=== PATIENT | male | born 1945 | race African-American/Black ===

== ENCOUNTER → 2017-08-30 | Outpatient (CLI) | payer MEDICARE, MEDICAID ==
[~2017-08-30] MED LIST: ALBU6.7H INH; ASPI-515 PO; ATOR40TA78 PO; AZIT250T89 PO; BENZ-17 PO; FLUT1AER INH; FLUTICASONE INH; GABA300C10 PO; LISI2.5T PO; LOSA50TA6 PO; METF500T4 PO; METH4TAB2 PO; MULT-717 PO; OMEP-110 PO
== END | disposition home or self-care (01) ==
LOC: CFH 09:17
PROVIDERS: ATTEND Internal Medicine
DX: J43.2 Centrilobular emphysema (principal); J84.10 Pulmonary fibrosis, unspecified
CPT/HCPCS: 71250

== ENCOUNTER 2018-01-01 21:36 | Emergency (ER) | payer MEDICARE, MEDICAID ==
[~2018-01-01] VITALS: Ht 175.3 cm; Wt 85.0 kg
[~2018-01-01 21:36] MED LIST changes: -METF500T4 PO; +METF500T5 PO
[2018-01-01] MEDS ORDERED: IBUPROFEN 200 MG TABLET ONE (22:13)
[2018-01-01] MEDS ORDERED: IBUPROFEN 200 MG TABLET PO ONE (22:30)
[2018-01-02 00:17] VITALS: BP 96/47
== END 2018-01-02 00:20 | disposition home or self-care (01) ==
LOC: ED 01-02 00:18
DX: S06.0X9A Concussion with loss of consciousness of unspecified duration, initial encounter (principal); S16.1XXA Strain of muscle, fascia and tendon at neck level, initial encounter; G89.11 Acute pain due to trauma; M25.512 Pain in left shoulder; I10 Essential (primary) hypertension; E11.9 Type 2 diabetes mellitus without complications; J44.9 Chronic obstructive pulmonary disease, unspecified; M19.91 Primary osteoarthritis, unspecified site; F17.200 Nicotine dependence, unspecified, uncomplicated; W07.XXXA Fall from chair, initial encounter; Y93.89 Activity, other specified; Y92.89 Other specified places as the place of occurrence of the external cause; Y99.8 Other external cause status
CPT/HCPCS: 70450; 72125; 99284

== ENCOUNTER 2018-06-04 22:54 | Emergency (ER) | payer MEDICARE, MEDICAID ==
[~2018-06-04] VITALS: Ht 175.3 cm; Wt 83.0 kg
[~2018-06-04 22:54] MED LIST changes: -LOSA50TA6 PO; +LOSA50TA7 PO; +METF500T17 PO; -METF500T5 PO
[2018-06-04 23:42] VITALS: BP 123/69
== END 2018-06-05 00:08 | disposition left against medical advice (07) ==
LOC: ED 06-05 00:01
DX: R55 Syncope and collapse (principal); I10 Essential (primary) hypertension; E11.9 Type 2 diabetes mellitus without complications; J44.9 Chronic obstructive pulmonary disease, unspecified
CPT/HCPCS: 71045; 93005; 99283

== ENCOUNTER 2018-06-10 09:56 | Emergency (ER) | payer MEDICARE, MEDICAID ==
[~2018-06-10] VITALS: Ht 177.8 cm; Wt 83.0 kg
[2018-06-10 11:36] LABS: RAPID INFLUENZA A POSITIVE (Negative); RAPID INFLUENZA B Negative (Negative)
[2018-06-10] MEDS ORDERED: DEXAMETHASONE 4 MG TABLET ONE ×2 (13:26→13:28)
[2018-06-10] MEDS ORDERED: DEXAMETHASONE 4 MG TABLET PO ONE (13:30)
[2018-06-10 13:40] VITALS: BP 138/82
== END 2018-06-10 13:42 | disposition home or self-care (01) ==
LOC: ED 11:45
DX: J10.1 Influenza due to other identified influenza virus with other respiratory manifestations (principal); I10 Essential (primary) hypertension; E11.9 Type 2 diabetes mellitus without complications; M19.90 Unspecified osteoarthritis, unspecified site; J44.9 Chronic obstructive pulmonary disease, unspecified
CPT/HCPCS: 71046; 87400; 99284

== ENCOUNTER 2018-08-29 07:19 | Emergency (ER) | payer MEDICARE, MEDICAID ==
[~2018-08-29] VITALS: Ht 175.3 cm; Wt 84.2 kg
[~2018-08-29 07:19] MED LIST changes: +LOSA50TA14 PO; -LOSA50TA7 PO
[2018-08-29] MEDS ORDERED: KETOROLAC 30 MG/1 ML IVPush ONE (08:00)
[2018-08-29] MEDS ORDERED: SODIUM CHLORIDE 0.9% 1,000ML IVBOLUS ONE (08:00)
[2018-08-29] MEDS ORDERED: ACETAMINOPHEN 325 MG TABLET PO ONE (08:00)
[2018-08-29] MEDS ORDERED: ACETAMINOPHEN 325 MG TABLET ONE (08:05)
[2018-08-29] MEDS ORDERED: KETOROLAC 30 MG/1 ML ONE (08:05)
[2018-08-29 08:24] LABS: MEAN CORPUSCULAR HEMOGLOBIN 30.2 pg (27.5-34.5); MEAN CORPUSCULAR HGB CONC 33.1 g/dL (33.2-36.2); MEAN CORPUSCULAR VOLUME 91.4 fL (81-97); PLATELET COUNT 199 x10^3/uL (130-400); RED BLOOD COUNT 5.01 x10^6/uL (4.38-5.82); RED CELL DISTRIBUTION WIDTH 14.1 % (9.4-14.8)
[2018-08-29 08:35] LABS: ALANINE AMINOTRANSFERASE 15 U/L (12-78); ALBUMIN 3.1 g/dL (3.4-5.0); ANION GAP 7 mmol/L (5-15); CALCIUM 8.8 mg/dL (8.5-10.1); CHLORIDE 105 mmol/L (98-107)
[2018-08-29 08:40] LABS: ALKALINE PHOSPHATASE 89 U/L (45-117); BASOPHILS # (AUTO) 0.01 x10^3/uL (0-0.1); BASOPHILS % (AUTO) 0 % (0-1); BILIRUBIN,TOTAL 0.7 mg/dL (0.2-1.0); CREATININE 1.04 mg/dL (0.7-1.3); EOSINOPHILS % (AUTO) 0 % (1-7); LYMPHOCYTES # (AUTO) 0.69 x10^3/uL (1-3.4); LYMPHOCYTES % (AUTO) 5 % (22-44); MD SCAN; MONOCYTES # (AUTO) 0.89 x10^3/uL (0.2-0.8); MONOCYTES % (AUTO) 7 % (2-9); NEUTROPHILS # (AUTO) 11.72 x10^3/uL (1.8-6.8); NEUTROPHILS % (AUTO) 88 % (42-75); TOTAL PROTEIN 7.8 g/dL (6.4-8.2); TROPONIN I < 0.015 ng/mL (0.000-0.045)
[2018-08-29 08:47] LABS: RAPID INFLUENZA A Negative (Negative); RAPID INFLUENZA B Negative (Negative)
--- NOTE | 2018-08-29 10:16 | NUR ---
PT OOB TO STAND AND USE URINAL. URINE SENT TO LAB
[2018-08-29 10:44] LABS: MICROSCOPIC INDICATED
[2018-08-29 10:59] LABS: CULTURE INDICATED? NO
[2018-08-29 11:53] VITALS: BP 109/60
--- NOTE | 2018-08-29 11:54 | NUR ---
1800 ADA DIET TRAY PROVIDED. D/C INST REVIEWED AND QUESTIONS ANSWERED. PT VERBALIZES UNDERSTANDING. PT TO D/C ONCE HE FINISHES HIS MEAL. UPRIGHT STEADY GAIT USING HIS CANE.
== END 2018-08-29 11:55 | disposition home or self-care (01) ==
LOC: ED 07:41
DX: M79.10 Myalgia, unspecified site (principal); R05 Cough; R09.81 Nasal congestion; J44.9 Chronic obstructive pulmonary disease, unspecified; M19.90 Unspecified osteoarthritis, unspecified site; E11.9 Type 2 diabetes mellitus without complications; I10 Essential (primary) hypertension
CPT/HCPCS: 36415; 71045; 80053; 81001; 83605; 83690; 84145; 84484; 85025; 87040; 87077; 87400; 93005; 96361; 96374; 99284; J1885; J7030; 87181

== ENCOUNTER 2018-08-30 20:09 | Inpatient (IN) | payer MEDICARE, MEDICAID ==
[~2018-08-30] VITALS: Ht 175.3 cm; Wt 77.9 kg
--- NOTE | 2018-08-30 20:20 | NUR ---
BIB [facility] FOR C/O SOB X 2 DAYS. DENIES CP. REPORTS WAS SEEN HERE YESTERDAY FOR SAME BUT FEELS WORSE TODAY. HX OF COPD WEARS 2L O2 VIA NC AT NIGHT. PT. ALSO C/O KELLEY TODAY ALL DAY. REPORTS "I WAS WEAK AND I FELL DOWN TWICE TODAY". DENIES INJURY/PAIN FROM FALLS TODAY. HAS PERSONAL CANE WITH HIM. PT. IS NSR-SINUS TACH ON MONITOR. CONTINUOUS PULSE OX, B/P, AND HEART MONIOTRS IN PLACE. AWAITING PROVIDER EVAL.
--- NOTE | 2018-08-30 20:34 | NUR ---
EKG WAS COMPLETED AND PRESENTED TO TAIWO.
[2018-08-30] MEDS ORDERED: ALBUTEROL/IPRATROPIUM 2.5MG/0.5MG, 3 ML ONE (20:48)
--- NOTE | 2018-08-30 21:17 | NUR ---
PT. PROVIDED MED LIST; UPDATED IN COMPUTER. VS UPDATED AND HAVE IMPROVED SINCE ARRIVAL. LAB AT BS DRAWING 2ND SET OF BLOOD CULTURES. PT. WITH NADN. RESP EVEN, NON-LABORED AT THIS TIME. O2 TURNED DOWN TO 1L PT. O2 SAT WAS 100% ON 2L. 99% ON 1L AT THIS TIME. CALL LIGHT REAMINS IN REACH. ALL SAFETY MEASURES OBSERVED.
[2018-08-30] MEDS ORDERED: ACETAMINOPHEN 500 MG TABLET ONE (21:22)
[2018-08-30] MEDS ORDERED: CEFTRIAXONE PMX 1GM/50ML 50 ML ONE (21:22)
[2018-08-30 21:28] LABS: BASOPHILS # (AUTO) 0.02 x10^3/uL (0-0.1); BASOPHILS % (AUTO) 0 % (0-1); EOSINOPHILS # (AUTO) 0.01 x10^3/uL (0-0.4); EOSINOPHILS % (AUTO) 0 % (1-7); LYMPHOCYTES # (AUTO) 2.08 x10^3/uL (1-3.4); LYMPHOCYTES % (AUTO) 22 % (22-44); MD NO; MEAN CORPUSCULAR HEMOGLOBIN 30.4 pg (27.5-34.5); MEAN CORPUSCULAR HGB CONC 32.8 g/dL (33.2-36.2); MEAN CORPUSCULAR VOLUME 92.6 fL (81-97); MEAN PLATELET VOLUME 7.9 fL (7.4-10.4); MONOCYTES # (AUTO) 1.05 x10^3/uL (0.2-0.8); MONOCYTES % (AUTO) 11 % (2-9); NEUTROPHILS # (AUTO) 6.14 x10^3/uL (1.8-6.8); NEUTROPHILS % (AUTO) 66 % (42-75); PLATELET COUNT 177 x10^3/uL (130-400); RED BLOOD COUNT 4.67 x10^6/uL (4.38-5.82); RED CELL DISTRIBUTION WIDTH 14.4 % (9.4-14.8)
--- NOTE | 2018-08-30 21:29 | NUR ---
PT. MEDICATED PER SEP. 2 SETS OF BLOOD CULTURES DRAWN PRIOR TO IV ABD. PT. ASSISTED TO POSITION OF COMFORT ON GURNEY. CALL LIGHT IN REACH. PT. DID VOID ABOUT 100ML OF YELLOW URINE INTO URINAL. DENIES NEEDS AT THIS TIME. ALL SAFETY MEASURES OBSERVED.
[2018-08-30] MEDS ORDERED: AZITHROMYCIN 500 MG in SODIUM CHLORIDE 0.9% 250 ML IV ONE (21:30)
[2018-08-30] MEDS ORDERED: ACETAMINOPHEN 325 MG TABLET PO ONE (21:30)
[2018-08-30] MEDS ORDERED: CEFTRIAXONE PMX 1GM/50ML 50 ML IV ONE (21:30)
[2018-08-30 21:37] LABS: ALBUMIN 2.9 g/dL (3.4-5.0); ANION GAP 5 mmol/L (5-15); CALCIUM 8.5 mg/dL (8.5-10.1); CHLORIDE 100 mmol/L (98-107); CREATININE 1.13 mg/dL (0.7-1.3)
[2018-08-30 21:41] LABS: TROPONIN I < 0.015 ng/mL (0.000-0.045)
--- NOTE | 2018-08-30 21:59 | NUR ---
PT. RESTING ON GURNEY WITH EYES CLOSED. EVEN, NON-LABORED RESP VISIBLE. ALL SAFETY MEASURES MAINTAINED.
--- NOTE | 2018-08-30 22:00 | NUR ---
CHART UP FOR RECHECK BY TAIWO.
--- NOTE | 2018-08-30 22:29 | NUR ---
REPORT TO HALLIE BRYAN. FLOOR READY FOR PT. TRANSPORT.
--- NOTE | 2018-08-30 22:37 | NUR ---
[facility] AT TO EVAL PT. FOR ADMISSION.
[2018-08-30 22:58] VITALS: BP 115/72
[2018-08-30] MEDS ORDERED: LIDODERM 5% PATCH TD PRN (23:00)
[2018-08-30] MEDS ORDERED: ALBUTEROL/IPRATROPIUM 2.5MG/0.5MG, 3 ML NPPB PRN (23:00)
[2018-08-30] MEDS ORDERED: DOCUSATE 100 MG CAPSULE PO PRN (23:00)
[2018-08-30] MEDS ORDERED: ONDANSETRON ODT 4 MG PO PRN (23:00)
[2018-08-30] MEDS ORDERED: GABAPENTIN 300 MG CAPSULE PO PRN (23:00)
[2018-08-30] MEDS ORDERED: DIPHENHYDRAMINE 25 MG CAPSULE PO PRN (23:00)
[2018-08-30] MEDS: ENOXAPARIN 40 MG/0.4 ML SQ SCH (23:38)
[2018-08-30] MEDS: SODIUM CHLORIDE 0.9% 1,000 ML IV SCH (23:38)
[2018-08-31 01:19] VITALS: BP 118/78
[2018-08-31] MEDS ORDERED: FLUTICASONE 50 MCG INH PRN (02:30)
[2018-08-31] MEDS ORDERED: BENZONATATE 100 MG CAPSULE PO PRN (02:30)
[2018-08-31 04:07] LABS: RAPID INFLUENZA A Negative (Negative); RAPID INFLUENZA B Negative (Negative)
[2018-08-31 06:00] LABS: ANION GAP 5 mmol/L (5-15); CALCIUM 8.2 mg/dL (8.5-10.1); CHLORIDE 105 mmol/L (98-107); CREATININE 0.93 mg/dL (0.7-1.3)
[2018-08-31] MEDS ORDERED: TEMPLATE NON-FORMULARY MED. (Albuterol Sulfate (Proventil Hfa) 2 PUFF(S)) INH SCH (06:00)
[2018-08-31 06:05] LABS: BASOPHILS # (AUTO) 0.03 x10^3/uL (0-0.1); BASOPHILS % (AUTO) 0 % (0-1); EOSINOPHILS # (AUTO) 0.03 x10^3/uL (0-0.4); EOSINOPHILS % (AUTO) 0 % (1-7); LYMPHOCYTES # (AUTO) 1.71 x10^3/uL (1-3.4); LYMPHOCYTES % (AUTO) 24 % (22-44); MD NO; MEAN CORPUSCULAR HGB CONC 33.3 g/dL (33.2-36.2); MEAN CORPUSCULAR VOLUME 93.3 fL (81-97); MEAN PLATELET VOLUME 7.9 fL (7.4-10.4); MONOCYTES # (AUTO) 1.28 x10^3/uL (0.2-0.8); MONOCYTES % (AUTO) 18 % (2-9); NEUTROPHILS # (AUTO) 4.08 x10^3/uL (1.8-6.8); NEUTROPHILS % (AUTO) 57 % (42-75); PLATELET COUNT 171 x10^3/uL (130-400); RED BLOOD COUNT 4.21 x10^6/uL (4.38-5.82); RED CELL DISTRIBUTION WIDTH 14.4 % (9.4-14.8)
[2018-08-31] MEDS: LOSARTAN 50MG TABLET PO SCH (08:20)
[2018-08-31] MEDS: ATORVASTATIN 40 MG TABLET PO SCH (08:20)
[2018-08-31] MEDS: MULTIVITAMINS/MINERALS TABLET PO SCH (08:20)
[2018-08-31] MEDS: OMEPRAZOLE 20 MG CAPSULE.DR PO SCH (08:20)
[2018-08-31] MEDS: GABAPENTIN 300 MG CAPSULE PO SCH (08:20)
[2018-08-31] MEDS: ASPIRIN 81 MG TABLET EC PO SCH (08:20)
[2018-08-31] MEDS: SODIUM CHLORIDE 0.9% 1,000 ML IV SCH ×2 (08:20→22:03)
[2018-08-31 08:22] VITALS: BP 133/84
[2018-08-31] MEDS: GUAIFENESIN/DM 200-20MG, 10ML UDC PO PRN ×2 (08:32→16:06)
[2018-08-31] MEDS: ACETAMINOPHEN 325 MG TABLET PO PRN ×2 (08:33→16:06)
[2018-08-31] MEDS: CEFTRIAXONE PMX 1GM/50ML 50 ML IV SCH ×2 (10:30→23:46)
[2018-08-31] MEDS: BUDESONIDE 0.5 MG/2 ML INHA NPPB SCH ×2 (10:50→19:46)
[2018-08-31] MEDS: ALBUTEROL/IPRATROPIUM 2.5MG/0.5MG, 3 ML NPPB SCH ×3 (10:50→19:46)
[2018-08-31 19:38] VITALS: BP 139/88
[2018-08-31] MEDS: AZITHROMYCIN 500 MG in SODIUM CHLORIDE 0.9% 250 ML IV SCH (22:03)
[2018-08-31] MEDS: ENOXAPARIN 40 MG/0.4 ML SQ SCH (23:46)
[2018-09-01 01:03] VITALS: BP 116/68
[2018-09-01] MEDS: ALBUTEROL/IPRATROPIUM 2.5MG/0.5MG, 3 ML NPPB SCH ×4 (03:00→19:22)
[2018-09-01 06:35] LABS: BASOPHILS # (AUTO) 0.02 x10^3/uL (0-0.1); BASOPHILS % (AUTO) 0 % (0-1); EOSINOPHILS # (AUTO) 0.02 x10^3/uL (0-0.4); EOSINOPHILS % (AUTO) 0 % (1-7); LYMPHOCYTES # (AUTO) 1.72 x10^3/uL (1-3.4); LYMPHOCYTES % (AUTO) 20 % (22-44); MD NO; MEAN CORPUSCULAR HEMOGLOBIN 30.7 pg (27.5-34.5); MEAN CORPUSCULAR HGB CONC 33.3 g/dL (33.2-36.2); MEAN CORPUSCULAR VOLUME 92.1 fL (81-97); MEAN PLATELET VOLUME 8.4 fL (7.4-10.4); MONOCYTES # (AUTO) 0.77 x10^3/uL (0.2-0.8); MONOCYTES % (AUTO) 9 % (2-9); NEUTROPHILS # (AUTO) 6.09 x10^3/uL (1.8-6.8); NEUTROPHILS % (AUTO) 71 % (42-75); PLATELET COUNT 177 x10^3/uL (130-400); RED BLOOD COUNT 4.14 x10^6/uL (4.38-5.82); RED CELL DISTRIBUTION WIDTH 14.4 % (9.4-14.8)
[2018-09-01 06:44] LABS: ANION GAP 5 mmol/L (5-15); CALCIUM 8.4 mg/dL (8.5-10.1); CHLORIDE 109 mmol/L (98-107); CREATININE 0.83 mg/dL (0.7-1.3)
[2018-09-01 07:01] LABS: HEMOGLOBIN A1C 7.2 % (4.2-6.3)
[2018-09-01 07:25] VITALS: BP 137/74
[2018-09-01] MEDS: OMEPRAZOLE 20 MG CAPSULE.DR PO SCH (07:49)
[2018-09-01] MEDS: SODIUM CHLORIDE 0.9% 1,000 ML IV SCH (07:49)
[2018-09-01] MEDS: ATORVASTATIN 40 MG TABLET PO SCH (07:49)
[2018-09-01] MEDS: LOSARTAN 50MG TABLET PO SCH (07:49)
[2018-09-01] MEDS: GABAPENTIN 300 MG CAPSULE PO SCH (07:49)
[2018-09-01] MEDS: MULTIVITAMINS/MINERALS TABLET PO SCH (07:49)
[2018-09-01] MEDS: ASPIRIN 81 MG TABLET EC PO SCH (07:49)
[2018-09-01] MEDS: BUDESONIDE 0.5 MG/2 ML INHA NPPB SCH ×2 (08:23→19:22)
[2018-09-01] MEDS: GUAIFENESIN/DM 200-20MG, 10ML UDC PO PRN (10:17)
[2018-09-01] MEDS: CEFTRIAXONE PMX 1GM/50ML 50 ML IV SCH ×2 (11:45→23:48)
[2018-09-01 13:06] VITALS: BP 138/75
[2018-09-01 18:43] VITALS: BP 137/82
[2018-09-01] MEDS: AZITHROMYCIN 500 MG in SODIUM CHLORIDE 0.9% 250 ML IV SCH (22:16)
[2018-09-01] MEDS: ENOXAPARIN 40 MG/0.4 ML SQ SCH (23:48)
[2018-09-02 01:44] VITALS: BP 133/76
[2018-09-02] MEDS: ALBUTEROL/IPRATROPIUM 2.5MG/0.5MG, 3 ML NPPB SCH ×2 (02:14→07:14)
[2018-09-02] MEDS: BUDESONIDE 0.5 MG/2 ML INHA NPPB SCH (07:14)
[2018-09-02 07:16] VITALS: BP 136/72
[2018-09-02] MEDS: GABAPENTIN 300 MG CAPSULE PO SCH (09:00)
[2018-09-02] MEDS: ATORVASTATIN 40 MG TABLET PO SCH (09:00)
[2018-09-02] MEDS: LOSARTAN 50MG TABLET PO SCH (09:01)
[2018-09-02] MEDS: OMEPRAZOLE 20 MG CAPSULE.DR PO SCH ×2 (09:01→09:03)
[2018-09-02] MEDS: MULTIVITAMINS/MINERALS TABLET PO SCH (09:01)
[2018-09-02] MEDS: ASPIRIN 81 MG TABLET EC PO SCH (09:01)
[2018-09-02] MEDS ORDERED: FLUT1AER INH (09:03)
[2018-09-02] MEDS ORDERED: CEFD300C37 PO (09:03)
[2018-09-02] MEDS ORDERED: AZIT500T5 PO (09:03)
[2018-09-02] MEDS ORDERED: BENZ-17 PO (09:03)
== END 2018-09-02 11:54 | disposition home or self-care (01) | DRG 871 ==
LOC: ED 22:12 → EDIP 22:45 → 4WST 22:46 → 4EST 09-01 00:19 → DCLOUNGE 09-02 11:40
PROVIDERS: ADMIT Internal Medicine; ATTEND Internal Medicine
DX: A41.9 Sepsis, unspecified organism (principal); J15.9 Unspecified bacterial pneumonia; J44.0 Chronic obstructive pulmonary disease with (acute) lower respiratory infection; J84.10 Pulmonary fibrosis, unspecified; E11.40 Type 2 diabetes mellitus with diabetic neuropathy, unspecified; E11.65 Type 2 diabetes mellitus with hyperglycemia; E88.09 Other disorders of plasma-protein metabolism, not elsewhere classified; I10 Essential (primary) hypertension; Z59.0 Homelessness; Z87.891 Personal history of nicotine dependence; M19.90 Unspecified osteoarthritis, unspecified site; M54.12 Radiculopathy, cervical region; B95.3 Streptococcus pneumoniae as the cause of diseases classified elsewhere
CPT/HCPCS: 36415; 71045; 80048; 82040; 83036; 83605; 84484; 85025; 87040; 87070; 87205; 87400; 93005; 94640; 96365; 96367; G0378; J0456; J0696; J1650; J7620; J7626; J7030; J7050; J7512

== ENCOUNTER → 2019-07-28 | Outpatient (CLI) | payer MEDICARE, MEDICAID ==
[~2019-07-28] MED LIST changes: -ALBU6.7H INH; +ALBU6.7H8 INH; +AZIT500T10 PO; +CEFD300C37 PO
== END | disposition home or self-care (01) ==
LOC: CFH 08:48
PROVIDERS: ATTEND Nurse Practitioner
DX: J84.10 Pulmonary fibrosis, unspecified (principal); J43.2 Centrilobular emphysema; J47.9 Bronchiectasis, uncomplicated; R91.8 Other nonspecific abnormal finding of lung field
CPT/HCPCS: 71250

== ENCOUNTER 2020-07-12 07:39 | Emergency (ER) | payer OTHER, MEDICAID ==
[~2020-07-12] VITALS: Ht 175.3 cm; Wt 75.0 kg
--- NOTE | 2020-07-12 08:07 | NUR ---
PT PLACED ON ALL ROOM MONITORING. URINE COLLECTED/SENT TO LAB. CALL LIGHT WITHIN REACH. LAB AT BS.
[2020-07-12] MEDS ORDERED: ACETAMINOPHEN 325 MG TABLET ONE (08:13)
[2020-07-12] MEDS ORDERED: KETOROLAC 30 MG/1 ML ONE (08:13)
--- NOTE | 2020-07-12 08:21 | NUR ---
LABS DRAWN. PT MEDICATED PER ERP ORDER. PT TO CT.
[2020-07-12 08:22] LABS: MICROSCOPIC NOT IND
[2020-07-12] MEDS ORDERED: KETOROLAC 30 MG/1 ML IM ONE (08:30)
[2020-07-12] MEDS ORDERED: ACETAMINOPHEN 325 MG TABLET PO ONE (08:30)
[2020-07-12 08:34] LABS: BASOPHILS % (AUTO) 0 % (0-1); EOSINOPHILS % (AUTO) 1 % (1-7); LYMPHOCYTES % (AUTO) 28 % (22-44); MEAN CORPUSCULAR HGB CONC 33.2 g/dL (33.2-36.2); MEAN PLATELET VOLUME 8.1 fL (7.4-10.4); MONOCYTES % (AUTO) 7 % (2-9); NEUTROPHILS % (AUTO) 64 % (42-75); PLATELET COUNT 166 x10^3/uL (130-400)
[2020-07-12 08:38] LABS: MD NO
[2020-07-12 08:47] LABS: ALANINE AMINOTRANSFERASE 20 U/L (12-78); ALBUMIN 3.6 g/dL (3.4-5.0); ANION GAP 3 mmol/L (5-15); CALCIUM 9.2 mg/dL (8.5-10.1); CHLORIDE 108 mmol/L (98-107); CREATININE 0.92 mg/dL (0.7-1.3)
[2020-07-12 08:51] LABS: ALKALINE PHOSPHATASE 86 U/L (45-117); BILIRUBIN,TOTAL 0.4 mg/dL (0.2-1.0); TOTAL PROTEIN 8.2 g/dL (6.4-8.2); TROPONIN I < 0.015 ng/mL (0.000-0.045)
--- NOTE | 2020-07-12 09:22 | NUR ---
PT SLEEPING, NAD, CALL LIGHT WITHIN REACH. AWAITING CT AND XR.
--- NOTE | 2020-07-12 09:33 | NUR ---
PT TO XRAY
--- NOTE | 2020-07-12 10:03 | NUR ---
ALL RESULTS BACK, PT FOR RECHECK. PT SLEEPING, NAD.
--- NOTE | 2020-07-12 10:21 | NUR ---
ATTEMPT TO AMBULATE PT UNSUCCESSFUL. PT STATES TOO PAINFUL TO BEAR WEIGHT AND REPORTS OF FREQUENT FALLS WORSENING OVER PAST YEAR. SW CONSULT ORDER PLACED, SW CALLED AND WILL SEE PT IN ER.
--- NOTE | 2020-07-12 11:11 | NUR ---
SW IN TO SEE PT.
[2020-07-12 12:07] VITALS: BP 121/60
--- NOTE | 2020-07-12 12:22 | NUR ---
THROUGHPUT RN: [employer] TRANSPORT ARRANGED FOR 1300
== END 2020-07-12 12:58 | disposition home or self-care (01) ==
LOC: ED 08:35
DX: S70.02XA Contusion of left hip, initial encounter (principal); S09.90XA Unspecified injury of head, initial encounter; G62.9 Polyneuropathy, unspecified; R53.1 Weakness; M54.2 Cervicalgia; I21.9 Acute myocardial infarction, unspecified; I11.9 Hypertensive heart disease without heart failure; R94.31 Abnormal electrocardiogram [ECG] [EKG]; E11.9 Type 2 diabetes mellitus without complications; J44.9 Chronic obstructive pulmonary disease, unspecified; K21.9 Gastro-esophageal reflux disease without esophagitis; W18.39XA Other fall on same level, initial encounter; Y93.9 Activity, unspecified; Y92.59 Other trade areas as the place of occurrence of the external cause; Y99.8 Other external cause status
CPT/HCPCS: 36415; 70450; 71045; 72125; 73502; 80053; 81003; 84484; 85025; 93005; 96372; 99285; J1885

== ENCOUNTER 2020-11-19 21:01 | Emergency (ER) | payer MEDICARE, MEDICAID ==
[~2020-11-19] VITALS: Ht 175.3 cm; Wt 82.0 kg
[~2020-11-19 21:01] MED LIST changes: -ASPI-515 PO; +ASPI-963 PO
--- NOTE | 2020-11-19 23:36 | NUR ---
PT STATES VISION IS BLURRY AND HAS A TOOTH THAT IS ACHING THAT STARTED 2 WEEKS AGO. PROVIDER AT BEDSIDE. AWATING ORDERS.
--- NOTE | 2020-11-20 00:05 | NUR ---
PROVIDER AT BEDSIDE EVALUATING PTS EYES. AWATING NEW ORDERS.
[2020-11-20] MEDS ORDERED: PENICILLIN VK 500MG TABLET PO ONE (00:30)
[2020-11-20] MEDS ORDERED: HYDROcodone/APAP 5/325 TABLET PO ONE (00:30)
[2020-11-20] MEDS ORDERED: PENICILLIN VK 500MG TABLET ONE (00:39)
[2020-11-20] MEDS ORDERED: HYDROcodone/APAP 5/325 TABLET ONE (00:40)
[2020-11-20 00:42] VITALS: BP 135/84
--- NOTE | 2020-11-20 00:45 | NUR ---
Patient given discharge instructions and they have confirmed that they understand the instructions. Patient ambulatory with steady gait. No quesitons at time of discharge.
== END 2020-11-20 00:47 | disposition home or self-care (01) ==
LOC: ED 11-20 00:10
DX: R51.9 Headache, unspecified (principal); H53.8 Other visual disturbances; K08.89 Other specified disorders of teeth and supporting structures; F17.210 Nicotine dependence, cigarettes, uncomplicated; I11.0 Hypertensive heart disease with heart failure; Z91.19 Patient's noncompliance with other medical treatment and regimen
CPT/HCPCS: 70450; 99284

== ENCOUNTER 2020-12-12 22:34 | Emergency (ER) | payer MEDICAID, MEDICARE ==
[~2020-12-12] VITALS: Ht 175.3 cm; Wt 82.1 kg
--- NOTE | 2020-12-13 01:46 | NUR ---
First contact with patient: patient presents to ER c/o left mouth pain, KELLEY, eye pain, and right leg pain. Denies recent trauma. Patient states he has been in recently for some similar symptoms. Patient is in NAD. Respirations even and unlabored.
--- NOTE | 2020-12-13 01:46 | NUR ---
Patient also c/o intermittent blurry vision which has been going on for awhile.
--- NOTE | 2020-12-13 01:56 | NUR ---
Patient HTN. States he has a hx and he takes meds.
[2020-12-13] MEDS ORDERED: ACETAMINOPHEN 500 MG TABLET ONE (01:59)
[2020-12-13] MEDS ORDERED: IBUPROFEN 800 MG TABLET ONE (01:59)
[2020-12-13] MEDS ORDERED: ACETAMINOPHEN 500 MG TABLET PO ONE (02:00)
[2020-12-13] MEDS ORDERED: IBUPROFEN 800 MG TABLET PO ONE (02:00)
--- NOTE | 2020-12-13 02:00 | NUR ---
Medicated patient per mar. Awaiting XR.
[2020-12-13 03:51] VITALS: BP 102/61
== END 2020-12-13 04:02 | disposition home or self-care (01) ==
LOC: ED 23:05
DX: K02.9 Dental caries, unspecified (principal); M25.561 Pain in right knee; I10 Essential (primary) hypertension; K21.9 Gastro-esophageal reflux disease without esophagitis
CPT/HCPCS: 99285